=== PATIENT | female | born 1940 | race Caucasian/White ===

== ENCOUNTER → 2018-05-13 | Outpatient (CLI) | payer OTHER | LOC: HYPER 04-30 15:24 | DX: L97.812 Non-pressure chronic ulcer of other part of right lower leg with fat layer exposed (principal); I10 Essential (primary) hypertension; E78.5 Hyperlipidemia, unspecified; E03.9 Hypothyroidism, unspecified; M19.90 Unspecified osteoarthritis, unspecified site; B35.1 Tinea unguium; Z85.3 Personal history of malignant neoplasm of breast ==

== ENCOUNTER → 2018-06-01 | Outpatient (CLI) | payer OTHER | LOC: HYPER 06:55 | DX: L97.812 Non-pressure chronic ulcer of other part of right lower leg with fat layer exposed (principal); L84 Corns and callosities; E78.5 Hyperlipidemia, unspecified; E03.9 Hypothyroidism, unspecified; I10 Essential (primary) hypertension; M19.90 Unspecified osteoarthritis, unspecified site; Z85.3 Personal history of malignant neoplasm of breast ==

== ENCOUNTER → 2018-06-17 | Outpatient (CLI) | payer OTHER | LOC: HYPER 06:57 | DX: L97.812 Non-pressure chronic ulcer of other part of right lower leg with fat layer exposed (principal); L84 Corns and callosities; E78.5 Hyperlipidemia, unspecified; E03.9 Hypothyroidism, unspecified; I10 Essential (primary) hypertension; M19.90 Unspecified osteoarthritis, unspecified site; Z85.3 Personal history of malignant neoplasm of breast ==

== ENCOUNTER → 2018-07-01 | Outpatient (CLI) | payer OTHER | LOC: HYPER 07:43 | DX: L97.812 Non-pressure chronic ulcer of other part of right lower leg with fat layer exposed (principal); E78.5 Hyperlipidemia, unspecified; E03.9 Hypothyroidism, unspecified; I10 Essential (primary) hypertension; M19.90 Unspecified osteoarthritis, unspecified site; Z85.3 Personal history of malignant neoplasm of breast ==